=== PATIENT | female | born 1985 | race Caucasian/White ===

== ENCOUNTER 2019-03-23 21:36 | Emergency (ER) | payer OTHER ==
[~2019-03-23] VITALS: Ht 172.7 cm; Wt 100.0 kg
[2019-03-23] MEDS ORDERED: HYDR-3812 (21:54)
[2019-03-23] MEDS ORDERED: PROM25TA14 (21:54)
[2019-03-23] MEDS ORDERED: TRAM50TA2 (21:54)
[2019-03-23] MEDS ORDERED: CARISOPRODOL (21:54)
[2019-03-23] MEDS ORDERED: AZIT250T12 PO (21:55)
[2019-03-23] MEDS ORDERED: D-ME118S33 PO (21:55)
--- NOTE | 2019-03-23 21:56 | ED Cough/URI ---
General Chief Complaint: Cough/Cold/Flu Symptoms Stated Complaint: COUGH/SOB Source: patient Exam Limitations: no limitations History of Present Illness Date Seen by Provider: Mar 23, 2019 Time Seen by Provider: 21:53 Initial Comments To ER with reports of cough and Wednesday (today is ) fever up to 102 max, runny nose. Timing/Duration: constant Severity/Quality: dry cough Prior Episodes/Possible Cause: no prior episodes Associated Symptoms: cough, nasal congestion Allergies and Home Medications Patient Home Medication List Home Medication List Reviewed: Yes Review of Systems Review of Systems Constitutional: see HPI, fever EENTM: see HPI, nose congestion Respiratory: see HPI, cough, short of breath Cardiovascular: no symptoms reported Genitourinary: no symptoms reported Musculoskeletal: no symptoms reported Skin: no symptoms reported Psychiatric/Neurological: No Symptoms Reported Hematologic/Lymphatic: No Symptoms Reported Past Qqyylgg-Lnitgu-Cjctix Hx Patient Social History Recent Foreign Travel: No Contact w/Someone Who Travel: No Physical Exam Capillary Refill : Height: '" Weight: lbs. oz. kg; BMI Method: General Appearance: WD/WN, no apparent distress Eyes: Bilateral Eye Normal Inspection, Bilateral Eye PERRL, Bilateral Eye EOMI HEENT: PERRL/EOMI, normal ENT inspection, TMs normal, pharynx normal Neck: non-tender, full range of motion Respiratory: normal breath sounds, no respiratory distress, no accessory muscle use; No wheezing Cardiovascular: no murmur, tachycardia Gastrointestinal: normal bowel sounds, non tender, soft Neurologic/Psychiatric: alert, normal mood/affect, oriented x 3 Skin: normal color, warm/dry Progress/Results/Core Measures Suspected Sepsis SIRS Temperature: Pulse: Respiratory Rate: Blood Pressure / Mean: Results/Orders My Orders Orders - DEANGELO CHÁVEZ APRN Chest Pa/Lat (2 View) (03/23/19 21:51) Vital Signs/I&O Capillary Refill : Departure Impression Primary Impression: Bronchitis Disposition: 01 HOME, SELF-CARE Condition: Stable Departure-Patient Inst. Decision time for Depature: 21:54 Referrals: NO,LOCAL PHYSICIAN (PCP/Family) Primary Care Physician Patient Instructions: Acute Bronchitis, Adult (DC) Add. Discharge Instructions: 1. Cough/decongestant medication as directed. Return to ER for any concerns All discharge instructions reviewed with patient and/or family. Voiced understanding. Scripts Azithromycin (Azithromycin) 250 Mg Tablet 250 MG PO UD, #6 TAB TAKE 2 TABLETS ON DAY ONE THEN TAKE 1 TABLET DAILY FOR FOUR MORE DAYS Prov: DEANGELO CHÁVEZ APRN 03/23/19 D-Methorphan Hb/P-Epd HCl/Bpm (Bromfed Dm Cough Syrup) 118 Ml Syrup 5 ML PO Q4H for 7 Days, #120 ML Prov: DEANGELO CHÁVEZ APRN 03/23/19 Work/School Note: Work Release Form Date Seen in the Emergency Department: Mar 23, 2019 Return to Work: Mar 25, 2019 DEANGELO CHÁVEZ APRN Mar 23, 2019 21:56
[2019-03-23] MEDS ORDERED: DEXAMETHASONE 10 MG/ML (DECADRON) 1 ML VIAL IM ONE (22:30)
[2019-03-23 22:45] VITALS: BP 134/88
--- NOTE | 2019-03-24 06:50 | Diagnostic Imaging Report ---
INDICATION: Cough COMPARISON: None available TECHNIQUE: Frontal and lateral radiographs of the chest dated 03/23/2019 FINDINGS: The cardiac silhouette and pulmonary vasculature within normal limits. The lungs are clear. No pleural effusion. No pneumothorax. No acute osseous abnormality. Surgical clips in the right upper quadrant of the abdomen. IMPRESSION: No acute cardiopulmonary abnormality. Dictated by: Dictated on workstation # [id number]
== END 2019-03-23 22:47 | disposition home or self-care (01) ==
LOC: EDUNIT# 21:36 → ER 21:39
DX: J40 Bronchitis, not specified as acute or chronic (principal)
CPT/HCPCS: 71046

== ENCOUNTER 2019-04-08 14:48 | Emergency (ER) | payer OTHER ==
[~2019-04-08] VITALS: Ht 165 cm; Wt 119.6 kg
[~2019-04-08 14:48] MED LIST: AZIT250T12 PO; CARISOPRODOL; D-ME118S33 PO; HYDR-3812; PROM25TA14; TRM50T
--- NOTE | 2019-04-08 14:51 | NUR ---
attempt to call pt back et pt not in waiting room.
--- NOTE | 2019-04-08 14:58 | ED Cough/URI ---
General Chief Complaint: Cough/Cold/Flu Symptoms Stated Complaint: COUGH Source: patient Exam Limitations: no limitations History of Present Illness Date Seen by Provider: Apr 08, 2019 Time Seen by Provider: 15:06 Initial Comments To ER with reports of an ongoing cough for about 3-4 weeks now, she presented here on March 23 for the same, given Bromfed-DM and azithromycin without improvement, has a persistent cough with posttussive emesis. Timing/Duration: just prior to arrival Severity/Quality: moderate Associated Symptoms: cough Allergies and Home Medications Allergies Coded Allergies: acetaminophen (Verified Allergy, Unknown, 03/23/19) divalproex sodium (Verified Allergy, Unknown, 03/23/19) morphine (Verified Allergy, Unknown, 03/23/19) propoxyphene (Verified Allergy, Unknown, 03/23/19) Home Medications Azithromycin 250 Mg Tablet, 250 MG PO UD TAKE 2 TABLETS ON DAY ONE THEN TAKE 1 TABLET DAILY FOR FOUR MORE DAYS Prescribed by: DEANGELO CHÁVEZ on 03/23/192154 D-Methorphan Hb/P-Epd HCl/Bpm 118 Ml Syrup, 5 ML PO Q4H Prescribed by: DEANGELO CHÁVEZ on 03/23/192154 Patient Home Medication List Home Medication List Reviewed: Yes Review of Systems Review of Systems Constitutional: see HPI EENTM: see HPI Respiratory: see HPI, cough Cardiovascular: no symptoms reported Genitourinary: no symptoms reported Musculoskeletal: no symptoms reported Skin: no symptoms reported Psychiatric/Neurological: No Symptoms Reported Past Mjrhxqz-Hvzdfq-Psncje Hx Patient Social History Drug of Choice: CANNIBUS Type Used: Cigarettes 2nd Hand Smoke Exposure: Yes Recent Hopitalizations: No Immunizations Up To Date Tetanus Booster (TDap): Unknown Seasonal Allergies Seasonal Allergies: No Past Medical History Surgeries: Yes Gallbladder, Orthopedic Respiratory: No Cardiac: No Neurological: Yes Headaches /Migraines, 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 oz. kg; 33.00 BMI Method: General Appearance: WD/WN, no apparent distress Eyes: Bilateral Eye Normal Inspection, Bilateral Eye PERRL, Bilateral Eye EOMI HEENT: PERRL/EOMI, normal ENT inspection Neck: non-tender, full range of motion Respiratory: normal breath sounds, no respiratory distress, no accessory muscle use Cardiovascular: regular rate, rhythm, no murmur Gastrointestinal: normal bowel sounds, soft Neurologic/Psychiatric: alert, normal mood/affect, oriented x 3 Skin: normal color, warm/dry Progress/Results/Core Measures Suspected Sepsis SIRS Temperature: Pulse: Respiratory Rate: Blood Pressure / Mean: Results/Orders My Orders Orders - DEANGELO CHÁVEZ APRN Chest Pa/Lat (2 View) (04/08/19 14:56) Promethazine/ Codeine Syrup (Phenergan W (04/08/19 15:00) Vital Signs/I&O 04/08/19 14:50 Temp 36.9 Pulse 110 Resp 20 B/P (MAP) 118/81 (93) Pulse Ox 99 O2 Delivery Room Air Capillary Refill : Departure Impression Primary Impression: Tracheobronchitis Disposition: 01 HOME, SELF-CARE Condition: Stable Departure-Patient Inst. Decision time for Depature: 15:08 Referrals: NO,LOCAL PHYSICIAN (PCP/Family) Primary Care Physician Patient Instructions: Cough, Adult (DC) Add. Discharge Instructions: 1. Return to ER for any concerns 2. Follow-up with your doctor next week 3. All discharge instructions reviewed with patient and/or family. Voiced understanding. Scripts Promethazine HCl/Codeine (Prometh-Codein 6.25-10 mg/5 ml) 5 Ml Syrup 5 ML PO Q4H PRN for COUGH, #60 ML Do not fill unless prednisone and Ceftin are also filled Prov: DEANGELO CHÁVEZ APRN 04/08/19 Cefuroxime Axetil (Cefuroxime) 250 Mg Tablet 250 MG PO BID, #10 TAB Prov: DEANGELO CHÁVEZ APRN 04/08/19 Prednisone (Prednisone) 20 Mg Tab 40 MG PO DAILY, #8 TAB 0 Refills Prov: DEANGELO CHÁVEZ APRN 04/08/19 Work/School Note: Work Release Form Date Seen in the Emergency Department: Apr 08, 2019 Return to Work: Apr 10, 2019 DEANGELO CHÁVEZ APRN Apr 08, 2019 14:58 POS
[2019-04-08] MEDS ORDERED: PROMETHAZINE/ CODEINE SYRUP 5 ML UDC PO ONE (15:00)
[2019-04-08] MEDS ORDERED: PROM5SYR PO (15:10)
[2019-04-08] MEDS ORDERED: PRD20T PO (15:10)
[2019-04-08] MEDS ORDERED: CEFU250T80 PO (15:10)
[2019-04-08 15:43] VITALS: BP 118/81
--- NOTE | 2019-04-08 15:43 | NUR ---
DEANGELO IN TALKING TO PT AT THIS TIME.
--- NOTE | 2019-04-08 16:07 | Diagnostic Imaging Report ---
INDICATION: Cough and chest pain x3 weeks. EXAMINATION: Two-view chest 04/08/2019. COMPARISON: 03/23/2019 FINDINGS: Two views of the chest. The perihilar regions are somewhat prominent perhaps due to mild congestion versus reactive airway disease or viral process. Remaining lungs are clear. No pleural effusions. No pneumothorax. Heart is unremarkable. IMPRESSION: 1. Mild increased perihilar opacities. See above discussion and correlate with symptoms. Dictated by: Dictated on workstation # [id number]
--- OUTSIDE RECORDS SUMMARY | 2019-05-02 00:46 | XMS REPORT | Continuity of Care Document ---
Author Organization Unknown POS Address Unknown SP Phone Unavailable SP Allergies Active Description Code Type Severity POS Reaction Onset Reported/Identified POS to Patient Clinical Status POS Yes acetaminophen [id number] [place] g Allergy SP Unknown N/A 03/23/2019 SP Yes divalproex sodium [id number] Drug Allergy SP Unknown N/A 03/23/2019 SP SP Yes morphine [id number] Drug Allergy SP N/A 03/23/2019 SP Yes propoxyphene [id number] Drug Allergy SP Unknown N/A 03/23/2019 SP Medications There is no data. Problems Date Dx Coded Attending Type Code POS Diagnosed By POS 03/23/2019 DEANGELO CHÁVEZ APRN Ot J40 SP NOT SPECIFIED ACUTE OR CH SP 03/23/2019 DEANGELO CHÁVEZ APRN Ot R05 SP SP 03/27/2019 DEANGELO CHÁVEZ APRN Ot J40 SP NOT SPECIFIED ACUTE OR CH SP 03/27/2019 DEANGELO CHÁVEZ APRN Ot R05 SP SP 04/11/2019 DEANGELO CHÁVEZ APRN Ot F32 .9 SP DEPRESSIVE DISORDER, SINGLE EPISOD SP 04/11/2019 DEANGELO CHÁVEZ APRN Ot F41 .9 SP DISORDER, UNSPECIFIED SP 04/11/2019 DEANGELO CHÁVEZ APRN Ot G35 SP SCLEROSIS SP 04/11/2019 DEANGELO CHÁVEZ APRN Ot G43.909 SP MIGRAINE, UNSP, NOT INTRACTABLE, WITHOUT SP 04/11/2019 DEANGELO CHÁVEZ APRN Ot J40 SP NOT SPECIFIED ACUTE OR CH SP 04/11/2019 DEANGELO CHÁVEZ APRN Ot R05 SP SP 04/11/2019 DEANGELO CHÁVEZ APRN Ot Z77.22 SP CNTCT W AND EXPSR TO ENVIRON TOBACCO SMO SP 04/11/2019 DEANGELO CHÁVEZ APRN Ot Z88 .5 SP STATUS TO NARCOTIC AGENT STATUS SP 04/11/2019 DEANGELO CHÁVEZ APRN Ot Z88 .6 SP STATUS TO ANALGESIC AGENT STATUS SP 04/11/2019 DEANGELO CHÁVEZ APRN Ot Z88 .8 SP STATUS TO OTH DRUG/MEDS/BIOL SUB SP Procedures There is no data. Results There is no data. Encounters ACCT No. Visit Date/Time Discharge Status POS Pt. Type Provider Facility Loc./Un it POS Complaint POS [id number] 04/08/2019 14:49:00 15:43:00 SP DIS Outpatient DEANGELO CHÁVEZ APRN [facility] ER COUGH SP [id number] 03/23/2019 21:39:00 22:47:00 SP DIS Emergency DEANGELO CHÁVEZ APRN [facility] ER COUGH/SOB SP
== END 2019-04-08 15:43 | disposition home or self-care (01) ==
LOC: EDUNIT# 14:48 → ER 14:49
DX: J40 Bronchitis, not specified as acute or chronic (principal); G43.909 Migraine, unspecified, not intractable, without status migrainosus; G35 Multiple sclerosis; F41.9 Anxiety disorder, unspecified; F32.9 Major depressive disorder, single episode, unspecified; Z88.6 Allergy status to analgesic agent; Z88.5 Allergy status to narcotic agent; Z88.8 Allergy status to other drugs, medicaments and biological substances; Z77.22 Contact with and (suspected) exposure to environmental tobacco smoke (acute) (chronic)
CPT/HCPCS: 71046

== ENCOUNTER 2019-06-19 23:10 | Emergency (ER) | payer OTHER ==
[~2019-06-19] VITALS: Ht 163 cm; Wt 114.3 kg
[~2019-06-19 23:10] MED LIST changes: +CEFU250T80 PO; +PRD20T PO; +PROM5SYR PO
[2019-06-20] MEDS ORDERED: NS IV 1000 ML 1,000 ML IV SCH (00:16)
[2019-06-20 00:25] LABS: BILIRUBIN,URINE NEGATIVE (NEGATIVE); CLARITY,URINE CLEAR; COLOR,URINE YELLOW; GLUCOSE, URINE (UA) NEGATIVE (NEGATIVE); KETONES,URINE NEGATIVE (NEGATIVE); LEUKOCYTE ESTERASE ,URINE NEGATIVE (NEGATIVE); NITRITE,URINE NEGATIVE (NEGATIVE); PH,URINE 7.5 (5-9); PROTEIN,URINE NEGATIVE (NEGATIVE)
[2019-06-20 00:26] LABS: BASOPHILS % (AUTO) 0 % (0-10); EOSINOPHILS # (AUTO) 0.2 10^3/uL (0.0-0.3); EOSINOPHILS % (AUTO) 1 % (0-10); HEMATOCRIT 39 % (35-52); LYMPHOCYTES # (AUTO) 3.2 X 10^3 (1.0-4.0); LYMPHOCYTES % (AUTO) 23 % (12-44); MEAN CORPUSCULAR HEMOGLOBIN 30 PG (25-34); MEAN CORPUSCULAR HGB CONC 33 G/DL (32-36); MEAN CORPUSCULAR VOLUME 92 FL (80-99); MEAN PLATELET VOLUME 9.3 FL (7.4-10.4); MONOCYTES # (AUTO) 1.1 X 10^3 (0.0-1.0); MONOCYTES % (AUTO) 8 % (0-12); NEUTROPHILS # (AUTO) 9.6 X 10^3 (1.8-7.8); NEUTROPHILS % (AUTO) 68 % (42-75); PLATELET COUNT 351 10^3/uL (130-400); RED CELL DISTRIBUTION WIDTH 13.5 % (10.0-14.5); WHITE BLOOD COUNT 14.1 10^3/uL (4.3-11.0)
[2019-06-20 00:36] LABS: BACTERIA,URINE TRACE /HPF; RBC,URINE 0-2 /HPF; WBC,URINE RARE /HPF
[2019-06-20 00:46] LABS: ALANINE AMINOTRANSFERASE 16 U/L (0-55); ALBUMIN 4.2 GM/DL (3.2-4.5); ALKALINE PHOSPHATASE 74 U/L (40-136); BILIRUBIN,TOTAL 0.2 MG/DL (0.1-1.0); BUN/CREATININE RATIO 5; CALCIUM 9.4 MG/DL (8.5-10.1); CARBON DIOXIDE 22 MMOL/L (21-32); CHLORIDE 104 MMOL/L (98-107); GFR ESTIMATED > 60; GLUCOSE 101 MG/DL (70-105); MAGNESIUM 2.2 MG/DL (1.6-2.4); POTASSIUM 3.8 MMOL/L (3.6-5.0); SODIUM 137 MMOL/L (135-145); TOTAL PROTEIN 7.5 GM/DL (6.4-8.2)
[2019-06-20 00:52] LABS: ERYTHROCYTE SEDIMENTATION RATE 28 MM/HR (0-20)
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
[2019-06-20] MEDS ORDERED: KETOROLAC 30 MG/ML VIAL IVP ONE (02:00)
[2019-06-20] MEDS ORDERED: AMOX500C2 PO ×2 (02:03→02:16)
[2019-06-20] MEDS ORDERED: FLUT9.9S NSEACH ×2 (02:03→02:16)
[2019-06-20 02:24] VITALS: BP 123/87
--- NOTE | 2019-06-20 07:45 | Diagnostic Imaging Report ---
PROCEDURE: CT head without contrast. TECHNIQUE: Multiple contiguous axial images were obtained through the brain without the use of intravenous contrast. Auto Exposure Controls were utilized during the CT exam to meet ALARA standards for radiation dose reduction. INDICATION: Vertigo, double vision There are no prior studies available for comparison. There is no mass, shift to the midline or hemorrhage to suggest an acute intracranial abnormality. The ventricles are not abnormally dilated. The bone windows show no sign of a fracture or of a destructive lesion. The orbits are symmetrical and within normal limits. The sinuses are generally clear. IMPRESSION: 1. There is no evidence for an acute intracranial abnormality and there is no sign of a mass lesion. 2. If clinical concern regarding an underlying abnormality persists, then MRI would be recommended for further study. Dictated by: Dictated on workstation # [id number]
== END 2019-06-20 02:24 | disposition home or self-care (01) ==
LOC: EDUNIT# 23:10 → ER 23:13
DX: R42 Dizziness and giddiness (principal); H53.9 Unspecified visual disturbance; R51 Headache; A63.0 Anogenital (venereal) warts; J01.00 Acute maxillary sinusitis, unspecified; G35 Multiple sclerosis; F41.9 Anxiety disorder, unspecified; F32.9 Major depressive disorder, single episode, unspecified; Z88.6 Allergy status to analgesic agent; Z86.69 Personal history of other diseases of the nervous system and sense organs; Z88.5 Allergy status to narcotic agent; Z88.8 Allergy status to other drugs, medicaments and biological substances; Z79.52 Long term (current) use of systemic steroids; Z77.22 Contact with and (suspected) exposure to environmental tobacco smoke (acute) (chronic)
CPT/HCPCS: 36415; 70450; 80053; 81000; 83735; 84703; 85025; 85652; 86141; 93005; 96361; 96374